=== PATIENT | female | born 2000 | race African-American/Black ===

== ENCOUNTER 2020-04-01 18:13 | Emergency (ER) | payer SELFPAY ==
[~2020-04-01 18:13] MED LIST: Iopamidol-370 76% 500 ML 1 ML ONE
[2020-04-01 19:03] LABS: Hemoglobin 12.8 g/dL (12.0-16.0); Mean Corpuscular HGB CONC 33.9 g/dL (32.0-36.0); Mean Corpuscular Hemoglobin 30.1 pg (25.0-35.0); Mean Corpuscular Volume 88.7 fL (78.0-98.0); Mean Platelet Volume 8.8 fL (7.4-10.4); Platelet Count 286 thou/uL (130-400); RBC Distribution Width 12.3 % (11.5-14.5); Red Blood Cell (RBC) Count 4.27 mill/uL (4.00-5.20); White Blood Cell (WBC) Count 6.1 thou/uL (4.8-10.8)
[2020-04-01 19:09] LABS: BHCG - Serum Negative (NEGATIVE); Pregs Control Background? CLEAR/WHITE (CLR/WHITE); Pregs Control Bar Appear? YES (CONTROL BAR)
[2020-04-01] MEDS ORDERED: Clindamycin/D5W 900 mg/50 ml Premix Bag ONE (19:09)
[2020-04-01] MEDS ORDERED: Dexamethasone 10 MG/ML VIAL ONE ×2 (19:09→20:37)
[2020-04-01 19:21] LABS: Band 7 % (5-11); Lymphocytes 23 % (28-48); MDiff Complete? YES; Monocytes 20 % (0-4); Neutrophil 50 % (31-61); Platelet Morphology Comment Appears Adequate; RBC Morphology Normal
[2020-04-01 19:24] LABS: ALT (SGPT) 15 U/L (8-55); AST (SGOT) 16 U/L (5-30); Albumin 4.4 g/dL (3.5-5.0); Alkaline Phosphatase 68 U/L (40-100); Anion Gap 17 mmol/L (10-20); BUN (Urea Nitrogen) 8 mg/dL (8.4-21.0); Calc. Creatinine Clearance 0 mL/min (70-130); Calcium 9.7 mg/dL (7.8-10.44); Carbon Dioxide 21 mmol/L (22-29); Chloride 100 mmol/L (98-107); Estimated GFR-MDRD 82; Globulin 4.1 g/dL (2.4-3.5); Glucose 76 mg/dL (70-105); Potassium 3.9 mmol/L (3.5-5.1); Protein, Total 8.5 g/dL (6.0-8.3); Sodium 134 mmol/L (136-145)
--- NOTE | 2020-04-01 19:58 | CT ---
CT Neck Soft Tissue W Con History: Sore throat. Pharyngitis Comparison: None. Findings: In the left palatine tonsil there is a multiloculated abscess with some mass effect on the adjacent airway. This abscess measures 2.2 cm in in AP dimension with a craniocaudal dimension of 3.3 cm. Mild hyperenhancement of the lingual and nasopharyngeal tonsils which are enlarged. Globes are intact. Reactive cervical lymph nodes, asymmetrically on the left. The lung apices are hiram ar. Normal cervical spine alignment. Mandible is intact. Impression: Large left palatine tonsillar abscess as described.
== END 2020-04-01 20:46 | disposition home or self-care (01) ==
LOC: ERS 18:13
DX: J36 Peritonsillar abscess (principal)
CPT/HCPCS: 70491; 80053; 84703; 85025; 96365; 96375; 96376; J1100; J3490; Q9967

== ENCOUNTER 2020-06-22 17:50 | Emergency (ER) | payer OTHER, SELFPAY ==
[2020-06-23 13:33] LABS: SARS-CoV-2 MS2 Positive; SARS-CoV-2 N Gene Positive; SARS-CoV-2 S Gene Positive; SARS-CoV-2 by NAA DETECTED (NotDetected); SARS-CoV-2 orf1ab Positive
== END 2020-06-22 19:50 | disposition home or self-care (01) ==
LOC: ERS 17:50
DX: J02.9 Acute pharyngitis, unspecified (principal); F17.210 Nicotine dependence, cigarettes, uncomplicated
CPT/HCPCS: 87081; 87430; 87635; 99283; U0003

== ENCOUNTER 2020-06-24 09:31 | Emergency (ER) | payer SELFPAY ==
[2020-06-24] MEDS ORDERED: Dexamethasone 10 MG/ML VIAL ONE ×2 (10:03→12:11)
[2020-06-24] MEDS ORDERED: Ketorolac Tromethamine 30 MG/ML VIAL ONE (10:04)
[2020-06-24 10:21] LABS: #Basophils 0.1 thou/uL (0.0-0.2); #Lymphocytes 2.6 thou/uL (1.20-3.40); #Monocytes 0.8 thou/uL (0.11-0.59); #Neutrophils 6.3 thou/uL (1.40-6.50); %Basophils 0.9 % (0.0-1.0); %Eosinophils 0.2 % (0.0-10.0); %Lymphocytes 26.1 % (28.0-48.0); %Monocytes 8.4 % (0.0-4.0); %Neutrophils 64.4 % (31.0-61.0); Hemoglobin 12.9 g/dL (12.0-16.0); Mean Corpuscular HGB CONC 31.7 g/dL (32.0-36.0); Mean Corpuscular Hemoglobin 29.3 pg (25.0-35.0); Mean Corpuscular Volume 92.4 fL (78.0-98.0); Platelet Count 329 thou/uL (130-400); RBC Distribution Width 12.4 % (11.5-14.5); Red Blood Cell (RBC) Count 4.39 mill/uL (4.00-5.20); White Blood Cell (WBC) Count 9.8 thou/uL (4.8-10.8)
[2020-06-24 10:28] LABS: BHCG - Serum Negative (NEGATIVE); Pregs Control Background? CLEAR/WHITE (CLR/WHITE); Pregs Control Bar Appear? YES (CONTROL BAR)
[2020-06-24 10:48] LABS: ALT (SGPT) 11 U/L (8-55); AST (SGOT) 11 U/L (5-34); Albumin 4.2 g/dL (3.5-5.0); Alkaline Phosphatase 77 U/L (40-100); Anion Gap 15 mmol/L (10-20); BUN (Urea Nitrogen) 9 mg/dL (7.0-18.7); Bilirubin, Total 0.6 mg/dL (0.2-1.2); Calc. Creatinine Clearance 0 mL/min (70-130); Calcium 9.3 mg/dL (7.8-10.44); Carbon Dioxide 24 mmol/L (22-29); Chloride 104 mmol/L (98-107); Estimated GFR-MDRD Greater than 90; Globulin 3.6 g/dL (2.4-3.5); Glucose 86 mg/dL (70-105); Protein, Total 7.8 g/dL (6.0-8.3); Sodium 139 mmol/L (136-145)
--- NOTE | 2020-06-24 11:27 | CT ---
EXAM: CT NECK SOFT TISSUE POST CONTRAST: HISTORY:Evaluate for left peritonsillar abscess COMPARISON:04/01/2020 CORRELATION:None FINDINGS: Brain parenchyma: No pathologic enhancement of the visualized brain parenchyma. Sinuses: Adequate aeration of the visualized paranasal sinuses and mastoid air cells. Orbits: Appropriate location of the ocular lenses. Symmetric attenuation the optic nerves and ocular rectus muscles. Retrobulbar fat is preserved. Nasopharynx:Fullness of the nasopharynx likely due to adenoid tonsillar hypertrophy Oral cavity:No obvious masses in the anterior oral cavity. Midline fatty raphae of the tongue is pres erved. Redemonstration of fullness of the left or right palatine tonsils. There is heterogeneous hypoattenuation involving the left palatine tonsil, measuring 2.6 x 1.5 cm. There is evidence for a l eft peritonsillar abscess. Mild lingual tonsillar hypertrophy is also identified. Hypopharynx: Epiglottis has a normal caliber. Preepiglottic fat is preserved.. Larynx: Supraglottic, glottic and subglottic larynx have a normal appearance. Paraspinal muscles: Symmetric attenuation of the paraspinal muscles and symmetric attenuation of the sternocleidomastoid muscles.. Parotid and salivary glands: Symmetric attenuation of the parotid and submandibular glands Thyroid gland: Unremarkable. Spine: Vertebral body height is maintained. No fracture. No significant central canal stenosis or sig nificant neural foraminal narrowing. Limited evaluation due to technique. Lymph nodes: There is soft tissue neck lymphadenopathy. Database Developer enlarged right neck level 2 ly mph node measures 1.4 x 1.9 cm and left neck level 2 lymph node measures 2.0 x 1.8 cm. Lung apices and upper mediastinum: No acute abnormality. IMPRESSION: 1. Left peritonsillar abscess. 2. There is lymphoid tissue hypertrophy involving the adenoid tonsils as well as lymph nodes involvin g the left and right neck. Lymphadenopathy is presumed to be reactive.
[2020-06-24] MEDS ORDERED: methylPREDNISolone Sod Succ 40 MG VIAL ONE (12:11)
[2020-06-24] MEDS ORDERED: cefTRIAXone\\ROCEPHIN 2 GM VIAL ONE (12:11)
[2020-06-24] MEDS ORDERED: methylPREDNISolone Acetate 40 mg/ml Vial IM SCH (12:30)
[2020-06-24] MEDS ORDERED: Iopamidol-370 76% 500 ML 1 ML ONE (16:17)
== END 2020-06-24 13:33 | disposition home or self-care (01) ==
LOC: ERS 09:31
DX: J03.90 Acute tonsillitis, unspecified (principal)
CPT/HCPCS: 36415; 70491; 80053; 84703; 85025; 96365; 96372; 96375; J0696; J1100; J1885; J2920; Q9967

== ENCOUNTER 2020-06-26 10:45 | Emergency (ER) | payer SELFPAY ==
[2020-06-26] MEDS ORDERED: Iopamidol-370 76% 500 ML 1 ML ONE (11:42)
[2020-06-26] MEDS ORDERED: Ondansetron PF 4 MG/2 ML Vial ONE (11:55)
[2020-06-26] MEDS ORDERED: Clindamycin/D5W 900 mg/50 ml Premix Bag ONE (11:55)
[2020-06-26] MEDS ORDERED: Dexamethasone 10 MG/ML VIAL ONE (11:56)
[2020-06-26 12:17] LABS: #Basophils 0.1 thou/uL (0.0-0.2); #Eosinphils 0.1 thou/uL (0.0-0.7); #Lymphocytes 2.5 thou/uL (1.20-3.40); #Monocytes 0.7 thou/uL (0.11-0.59); #Neutrophils 3.4 thou/uL (1.40-6.50); %Basophils 0.8 % (0.0-1.0); %Eosinophils 1.2 % (0.0-10.0); %Lymphocytes 37.6 % (28.0-48.0); %Monocytes 10.1 % (0.0-4.0); %Neutrophils 50.4 % (31.0-61.0); Hemoglobin 12.1 g/dL (12.0-16.0); Mean Corpuscular HGB CONC 31.9 g/dL (32.0-36.0); Mean Platelet Volume 8.6 fL (7.4-10.4); Platelet Count 302 thou/uL (130-400); RBC Distribution Width 12.4 % (11.5-14.5); Red Blood Cell (RBC) Count 4.05 mill/uL (4.00-5.20); White Blood Cell (WBC) Count 6.7 thou/uL (4.8-10.8)
[2020-06-26 12:26] LABS: BHCG - Serum Negative (NEGATIVE); Pregs Control Background? CLEAR/WHITE (CLR/WHITE); Pregs Control Bar Appear? YES (CONTROL BAR)
[2020-06-26 12:38] LABS: ALT (SGPT) 9 U/L (8-55); AST (SGOT) 10 U/L (5-34); Albumin 3.6 g/dL (3.5-5.0); Alkaline Phosphatase 63 U/L (40-100); Anion Gap 11 mmol/L (10-20); BUN (Urea Nitrogen) 14 mg/dL (7.0-18.7); Bilirubin, Total 0.6 mg/dL (0.2-1.2); Calc. Creatinine Clearance 0 mL/min (70-130); Calcium 8.7 mg/dL (7.8-10.44); Carbon Dioxide 25 mmol/L (22-29); Chloride 106 mmol/L (98-107); Estimated GFR-MDRD Greater than 90; Globulin 3.1 g/dL (2.4-3.5); Glucose 80 mg/dL (70-105); Protein, Total 6.7 g/dL (6.0-8.3); Sodium 138 mmol/L (136-145)
--- NOTE | 2020-06-26 16:51 | CT ---
CT OF THE SOFT TISSUES OF THE NECK WITH IV CONTRAST INDICATION: 20-year-old female with left-sided throat pain COMPARISON: Prior CT of the soft tissue of the neck dated 06/24/2020 FINDINGS: Aerodigestive tract: There is persistent bilateral palatine tonsillar hypertrophy. There is an enlar ging left tonsillar abscess measuring 3.2 x 2 x 2.8 cm where previously it measured 2.6 x 1.5 x 2.1 cm. Parotids/Submandibular/Thyroid glands: Normal. Lymph nodes: There is persistent adenopathy of the upper cervical chains. The largest lymph node is seen in the left level 2A position measuring 1.7 cm on image 43 of series 2. Lung Apices: Clear. Bones: No acute osseous abnormality. Incidentals: Visualized intracranial contents are unremarkable appearing. IMPRESSION: Enlarging left tonsillar abscess. Persistent cervical lymphadenopathy.
[2020-06-26] MEDS ORDERED: Lidocaine 1% w/Epinephrine 1:100K 20 ML VIAL ONE (16:58)
== END 2020-06-26 18:46 | disposition home or self-care (01) ==
LOC: ERS 10:45
DX: J36 Peritonsillar abscess (principal)
CPT/HCPCS: 70491; 80053; 84703; 85025; 87040; 96365; 96372; 96375; J1100; J2405; J3490; Q9967

== ENCOUNTER 2021-08-23 15:35 | Emergency (ER) | payer OTHER | END 2021-08-23 16:41 | disposition home or self-care (01) | LOC: ERS 15:35 | DX: L73.2 Hidradenitis suppurativa (principal); L02.412 Cutaneous abscess of left axilla | CPT/HCPCS: 99283 ==

== ENCOUNTER 2022-06-09 14:06 | Emergency (ER) | payer OTHER, SELFPAY | END 2022-06-09 15:30 | disposition home or self-care (01) | LOC: ERS 14:06 | DX: H60.01 Abscess of right external ear (principal); R50.9 Fever, unspecified | CPT/HCPCS: 99283 ==

== ENCOUNTER 2022-09-13 14:47 | Emergency (ER) | payer SELFPAY | END 2022-09-13 16:20 | disposition home or self-care (01) | LOC: ERS 14:47 | DX: L03.111 Cellulitis of right axilla (principal) ==

== ENCOUNTER 2024-06-27 21:13 | Emergency (ER) | payer SELFPAY ==
[2024-06-27] MEDS ORDERED: predniSONE 20 MG TAB ONE (22:21)
== END 2024-06-27 22:53 | disposition home or self-care (01) ==
LOC: ERS 21:13
DX: U07.1 COVID-19 (principal)
CPT/HCPCS: 71046; J7512